=== PATIENT | female | born 1990 | race Caucasian/White ===

== ENCOUNTER 2018-09-25 18:12 | Emergency (ER) | payer OTHER ==
[~2018-09-25] VITALS: Ht 160 cm; Wt 102.1 kg
[~2018-09-25 18:12] MED LIST: BIRTH CONTROL
[2018-09-25 19:04] VITALS: BP 153/92
[2018-09-26 14:10] LABS: HIV-1/HIV-2 ANTIBODY Non Reactive (Non Reactive)
== END 2018-09-25 19:05 | disposition home or self-care (01) ==
LOC: M.ERS 18:12
PROVIDERS: Nurse Practitioner Family
DX: S69.82XA Other specified injuries of left wrist, hand and finger(s), initial encounter (principal); W46.0XXA Contact with hypodermic needle, initial encounter; Y93.89 Activity, other specified; Y92.89 Other specified places as the place of occurrence of the external cause; Y99.0 Civilian activity done for income or pay